=== PATIENT | male | born 1995 | race Caucasian/White ===

== ENCOUNTER 2017-07-29 18:50 | Emergency (ER) | payer OTHER ==
--- NOTE | 2017-07-29 19:14 | EDM.PDOC ---
ED HPI GENERAL MEDICAL PROBLEM - General Chief Complaint: Lower Extremity Injury/Pain Stated Complaint: HURT RIGHT ANKLE Time Seen by Provider: 07/29/17 19:05 Source of Information: Reports: Patient History Limitations: Reports: No Limitations - History of Present Illness INITIAL COMMENTS - FREE TEXT/NARRATIVE: Maximus is seen at [facility] ED with a swollen R ankle that occurred earlier today when he mistepped, rolling the R foot. There has been progressive swelling and some pain with wt bearing. He has taken no meds. R ankle Pain Score (Numeric/FACES): 5 - Related Data Allergies Allergy/AdvReac Type Severity Reaction Status Date / Time No Known Allergies Allergy Verified 07/29/17 19:07 Home Meds: Home Meds NK [No Known Home Meds] 07/29/17 [History] Review of Systems - Review of Systems Review Of Systems: ROS reveals no pertinent complaints other than HPI. ED EXAM, GENERAL - Physical Exam Exam: See Below Exam Limited By: No Limitations General Appearance: Alert, WD/WN, No Apparent Distress Head: Normocephalic Neck: Normal Inspection, Supple, Full Range of Motion Respiratory/Chest: Lungs Clear Cardiovascular: Regular Rate, Rhythm Back Exam: Normal Inspection Extremities: Joint Swelling (R ankle laterally), Leg Pain (no laxity to maneuver ), Limited Range of Motion Neurological: Alert, Oriented, CN II-XII Intact, Normal Cognition, No Motor/ Sensory Deficits Psychiatric: Normal Affect, Normal Mood Skin Exam: Warm, Dry, Intact Lymphatic: No Adenopathy Course - Vital Signs Text/Narrative:: I reviewed x rays of R ankle, neg for fx. Last Recorded V/S: Last Vital Signs Temp 36.7 C 07/29/17 19:04 Pulse 92 07/29/17 19:04 Resp 18 07/29/17 19:04 BP 154/84 H 07/29/17 19:04 Pulse Ox 98 07/29/17 19:04 - Orders/Labs/Meds Orders: Active Orders 24 hr Category Date Time Status Ankle Min 3V Rt [CR] Stat Exams 07/29/17 19:12 Ordered Departure - Departure Time of Disposition: 20:28 Disposition: Home, Self-Care 01 Condition: Fair Clinical Impression: Sprain of right ankle Qualifiers: Encounter type: initial encounter Involved ligament of ankle: calcaneofibular ligament Qualified Code(s): S93.411A - Sprain of calcaneofibular ligament of right ankle, initial encounter - Discharge Information Referrals: PCP,None [Primary Care Provider] - Forms: ED Department Discharge - Problem List & Annotations (1) Sprain of right ankle SNOMED Code(s): 11102756 Code(s): S93.401A - SPRAIN OF UNSPECIFIED LIGAMENT OF RIGHT ANKLE, INIT ENCNTR Status: Acute Current Visit: Yes Annotation/Comment:: RICE, ankle support, activity as tolerated, NSAIDs for comfort. Qualifiers: Encounter type: initial encounter Involved ligament of ankle: calcaneofibular ligament Qualified Code(s): S93.411A - Sprain of calcaneofibular ligament of right ankle, initial encounter - Problem List Review Problem List Initiated/Reviewed/Updated: Yes - My Orders Last 24 Hours: My Active Orders 07/29/17 19:12 Ankle Min 3V Rt [CR] Stat - Assessment/Plan Last 24 Hours: My Active Orders 07/29/17 19:12 Ankle Min 3V Rt [CR] Stat Plan: Follow up with PCP if needed.
--- NOTE | 2017-07-30 13:55 | CR ---
INDICATION: Inversion injury, question fracture, twisted. RIGHT ANKLE: Three views of the right ankle were obtained and revealed soft tissue swelling overlying the lateral malleolus. There is some minimal deformity of the distal shaft of the fibula, compatible with a previous healed fracture at that site. The ankle mortise appears to be intact without evidence of a fracture or dislocation or other significant bone or joint abnormality. IMPRESSION: No acute fracture or dislocation. MTDD
== END 2017-07-29 20:40 | disposition home or self-care (01) ==
LOC: FB.ED 18:50
DX: S93.411A Sprain of calcaneofibular ligament of right ankle, initial encounter (principal); X50.9XXA Other and unspecified overexertion or strenuous movements or postures, initial encounter
CPT/HCPCS: 73610-RT; 99283